=== PATIENT | male | born 1965 | race Caucasian/White ===

== ENCOUNTER → 2020-08-11 | Outpatient (CLI) | payer BC ==
[~2020-08-11] MED LIST: OMNIPAQUE 350 MG/ML, 100ML BOTTLE ONE
== END | disposition home or self-care (01) ==
LOC: CFH 14:03
PROVIDERS: ATTEND Internal Medicine Cardiovascular Disease
DX: I25.10 Atherosclerotic heart disease of native coronary artery without angina pectoris (principal); I77.810 Thoracic aortic ectasia; I45.10 Unspecified right bundle-branch block; R07.89 Other chest pain
CPT/HCPCS: 75574; Q9967

== ENCOUNTER 2020-09-08 07:32 | Outpatient (CLI) | payer BC ==
[2020-09-08] MEDS ORDERED: REGADENOSON 0.4 MG/5 ML SYRINGE ONE (07:35)
== END 2020-09-08 23:59 | disposition home or self-care (01) ==
LOC: CFH 07:32
PROVIDERS: ATTEND Physician Assistant
DX: I21.29 ST elevation (STEMI) myocardial infarction involving other sites (principal); I25.5 Ischemic cardiomyopathy; Z91.89 Other specified personal risk factors, not elsewhere classified
CPT/HCPCS: 78452; 93017; A9502; J2785